=== PATIENT | female | born 1985 | race Caucasian/White ===

== ENCOUNTER → 2019-10-30 | Outpatient (CLI) | payer BC | LOC: DIA.ED 08:14 | DX: O24.419 Gestational diabetes mellitus in pregnancy, unspecified control (principal) | CPT/HCPCS: G0108 ==

== ENCOUNTER 2019-12-16 09:32 | Inpatient (IN) | payer BC ==
[~2019-12-16] VITALS: Ht 162.6 cm; Wt 67.3 kg
[2019-12-16] VITALS (15 sets, daily range): BP systolic 108–155; BP diastolic 57–79; PULSE 77–103; TEMP 97.6–98.1
--- NOTE | 2019-12-16 09:35 | NUR ---
Pt arrives unit ambulatory with spouse. Primary language Kiley, assisting with translating. G2L1 at 37.6 weeks. States ctx starting at 0500 with bloody show. Denies ROM and reports GFM. SVE per this RN 5-/-2 with bloody show. Admission assessment completed. Dr. Bates notified. Orders for admission. Pt updated on POC. Bed locked in low position.
[2019-12-16] MEDS ORDERED: PRENATAL MVI (09:46)
--- NOTE | 2019-12-16 10:15 | NUR ---
Reactive FHR strip obtained. Pt taken off monitors to birthing ball.
[2019-12-16 10:49] LABS: BASO % 0.4 % (0.0-2.0); EOS # 0.1 (0.0-0.7); EOS % 0.7 % (0-4.0); GRAN # 8.8 (1.4-6.5); GRAN % 76.7 % (42.2-75.2); HEMATOCRIT 42.6 % (37.0-47.0); HEMOGLOBIN 14.1 g/dl (12.5-16.0); LYMPH # 1.8 (1.2-3.4); LYMPH % 15.7 % (20.0-51.0); MEAN CELL VOLUME 75 fl (80.0-100.0); MEAN CORPUSCULAR HEMOGLOBIN 25 pg (27.0-31.0); MEAN CORPUSCULAR HGB CONC 33 g/dl (33.0-37.0); MEAN PLATELET VOLUME 11.9 fl (7.4-10.4); MONO # 0.7 (0.1-0.6); PLATELET COUNT 160 K/mm3 (130-400); RED BLOOD COUNT 5.66 M/mm3 (4.10-5.30); REDCELL DISTRIBUTION WIDTH-CV 13.4 % (11.5-14.5)
--- NOTE | 2019-12-16 11:01 | NUR ---
Pt sitting upright for epidural placement. RN at bedside adjusting monitors. FHR audible.
--- NOTE | 2019-12-16 11:45 | NUR ---
SVE per Dr. Bates C/+2. AROM per provider with mec fluid. Pt prepped for delivery. 1205-Pt begins pushing with provider. Moves vertex well. 1214- of viable female attended by Dr. Bates. NC x1. Cord clamped x 2 and taken to warmer per mother's request. Care of to Lana Troy RN. Apgars 8/9. 1222- of placenta. Pitocin bolus infusing per protocol. Fundus firm at umbilicus. Second degree laceration repaired by provider. Pericare performed. Red robbin of 50 ccs clear, yellow urine. Pt updated on POC. Bed locked in low position. Call light within reach.
[2019-12-17 00:30] VITALS: BP 124/88; PULSE 69; TEMP 97.2
[2019-12-17 08:20] VITALS: BP 117/64; PULSE 84; TEMP 97.1
--- NOTE | 2019-12-17 08:39 | NUR ---
Initial visit; Patient does not speak Tristanian, Hvac Lead smiled and placed her hands in a prayer position, patient responded with a smile. Hvac Lead left her a card with congratulations for the of her son and information regarding spiritual care, in hopes someone in her family will be able to translate it for her.
[2019-12-17] MEDS ORDERED: IBU600 MG PO (09:36)
--- NOTE | 2019-12-17 14:44 | NUR ---
1420 DISCHARGE INSTRUCTIONS REVIEWED WITH PATIENT AND PATIENT'S . BOTH VERBALIZED UNDERSTANDING. ALL QUESTIONS ANSWERED. PATIENT AND SPOUSE VERBALIZED UNDERSTANDING TO LET THIS RN KNOW WHEN READY TO LEAVE.
--- NOTE | 2019-12-17 15:21 | NUR ---
1510 ALL PERSONAL BELONGINGS GATHERED FROM PATIENT ROOM. PATIENT LEFT AMBULATORY AND IN NO APPARENT DISTRESS. PATIENT ACCOMPANIED BY SPOUSE AND Laurent LOMAX BILINGUAL ADMINISTRATIVE ASSISTANT.
== END 2019-12-17 15:10 | disposition home or self-care (01) | DRG 807 ==
LOC: LDRO → LDR 10:01 → OB 10:01
PROVIDERS: Obstetrics & Gynecology; ADMIT Student in an Organized Health Care Education/Training Program
PROC: 10E0XZZ Delivery of Products of Conception, External Approach (ICD-10-PCS; principal; 2019-12-16)
PROC: 10907ZC Drainage of Amniotic Fluid, Therapeutic from Products of Conception, Via Natural or Artificial Opening (ICD-10-PCS; 2019-12-16)
PROC: 0KQM0ZZ Repair Perineum Muscle, Open Approach (ICD-10-PCS; 2019-12-16)
DX: O24.420 Gestational diabetes mellitus in childbirth, diet controlled (principal); Z37.0 Single live birth; O77.0 Labor and delivery complicated by meconium in amniotic fluid; O70.1 Second degree perineal laceration during delivery; O69.81X0 Labor and delivery complicated by cord around neck, without compression, not applicable or unspecified; Z3A.37 37 weeks gestation of pregnancy
CPT/HCPCS: J2590; J7120

== ENCOUNTER 2022-07-03 00:55 | Outpatient (CLI) | payer MEDICAID ==
[~2022-07-03] VITALS: Ht 162.6 cm; Wt 67.2 kg
[~2022-07-03 00:55] MED LIST: IBU600 MG PO; PRENATAL MVI
[2022-07-03 01:30] VITALS: BP 122/72; PULSE 70; TEMP 96.5
--- NOTE | 2022-07-03 01:30 | NUR ---
0105: Pt ambulated onto unit accompanied by spouse. Pt oriented to LDR4 and changed into exam gown. 0112: This nurse at pt bedside for introductions. Pt spouse present at bedside and is poster for pt. Unit portable poster out of order at the time. Pt states, via pt spouse translation, "no vaginal bleeding, no leaking. Contractions are about 5 to 10 minutes and all in belly under here." Pt spouse references to pt lower abdomen area. Charge nurse Jaylin Macdonald RN brings this nurse borrowed portable poster. This nurse utilizes portable poster, [employer] ID #[id number], to verify and clarify assessment(s) and reason of visit with pt. Pt stated, via Roverto, "contractions that I feel under here." Pt references to their lower abdomen. Pt denies, via Roverto, "no bleeding, no leaking." Questions, concerns, and needs encouraged. Pt and pt spouse verbalizes understanding and agreement of POC with "no" questions, concerns, or needs at this time. 0119: MAUREEN, with pt consent and explanation, /-3.
[2022-07-03 02:00] VITALS: BP 118/68; PULSE 87; TEMP 96.5
--- NOTE | 2022-07-03 02:00 | NUR ---
1041-4343: Intermittent lates with ctx noted. Pt repositioned into WL, intermittent lates resolved with repositioning.
[2022-07-03] MEDS ORDERED: GLUCOPHAGE500 MG/TAB PO (02:12)
[2022-07-03 02:34] VITALS: BP 117/71; PULSE 83
--- NOTE | 2022-07-03 02:34 | NUR ---
0227: This nurse at pt bedside. Portable senior java web application developer utilized, no [place] speaking translators available at the time. Pt spouse translated for pt. SVE, with pt consent and explanation, unchanged. 0231: This nurse notifies Dr. Morgan via phonecall, no answer. Voicemail left. 0233: Dr. Morgan calls unit doctor phone, this nurse answers. Pt report and progress given. Initial SVE /3, recheck SVE unchanged. See physician notification for further details. 0234: Pt off external monitors x2. Pt changed into civilian clothes.
--- NOTE | 2022-07-03 03:12 | NUR ---
Pt POC for DC discussed, via pt spouse as clinical academic allergist. Pt given a copy of health summary and Early Labor/Discomforts of information packets. Pt educated on keeping all scheduled appointments as well as returning to unit if consistent and persistent contractions, leaking/gushing of fluids, and/or vaginal bleeding occurs. Pt educated on spotting after SVE. Pt also educated on keeping hydrated. Questions, concerns, and needs encouraged. Pt, via pt spouse, verbalized understanding and agreement of POC for DC with "no" questions, concerns, or needs. Discharge summary consent signed, witnessed, and obtained. Pt ambulates off unit, accompanied by pt spouse with discharge paperwork(s) in hand, at 0312.
[2022-07-04] MEDS ORDERED: MOTRIN 800800 MG/TAB PO (08:31)
== END 2022-07-03 03:12 ==
LOC: LDRO 00:55 → LDR 01:58 → LDRO 03:12
DX: O47.1 False labor at or after 37 completed weeks of gestation (principal); Z3A.37 37 weeks gestation of pregnancy
CPT/HCPCS: OP